=== PATIENT | female | born 1970 | race African-American/Black ===

== ENCOUNTER 2017-10-30 16:56 | Emergency (ER) | payer BC, MEDICAID ==
[~2017-10-30] VITALS: Ht 157.5 cm; Wt 65.8 kg
[~2017-10-30 16:56] MED LIST: ASPI-618 PO; ATOR10TA PO; HYDR-3326 PO; TOPI50TA PO
--- NOTE | 2017-10-30 17:10 | NUR ---
RECEIVED PT CO SUDDEN LOWER RT BACK PAIN SINCE YESTERDAY. PT POSITIONED ON BED COMFORTABLY, AWAITING
--- NOTE | 2017-10-30 17:20 | NUR ---
PATIENT FOR LUMBER XRAY, DENIES , SIGNED A WAIVER TO SCREEN AND AGREES TO PREFORM XRAY.
[2017-10-30 17:45] VITALS: BP 110/63
--- NOTE | 2017-10-30 17:45 | NUR ---
Patient discharged to home in stable conditon. Written and verbal after care instructions given. Patient verbalizes understanding of instructions.
== END 2017-10-30 17:47 | disposition home or self-care (01) ==
LOC: ER 16:58
DX: M54.5 Low back pain (principal); Z79.891 Long term (current) use of opiate analgesic; Z79.82 Long term (current) use of aspirin; Z79.899 Other long term (current) drug therapy
CPT/HCPCS: 72100; 99284; A4663

== ENCOUNTER 2018-04-07 01:13 | Emergency (ER) | payer SELFPAY ==
[~2018-04-07] VITALS: Ht 165.1 cm; Wt 68.9 kg
[2018-04-07] MEDS ORDERED: LIDOCAINE VISCUS 2% 15 ML UDC ONE ×2 (01:41)
[2018-04-07] MEDS ORDERED: PANTOPRAZOLE SODIUM 40 MG TABLET.DR PO ONE ×2 (01:42→01:45)
[2018-04-07] MEDS ORDERED: MAG HYDROX/AL HYDROX/SIMETH 30 ML LIQUID UDC ONE (01:42)
[2018-04-07] MEDS ORDERED: LIDOCAINE VISCUS 2% 15 ML UDC MM ONE (01:45)
[2018-04-07] MEDS ORDERED: MAG HYDROX/AL HYDROX/SIMETH 30 ML LIQUID UDC PO ONE (01:45)
--- NOTE | 2018-04-07 02:22 | NUR ---
Patient discharged to home in stable conditon. Written and verbal after care instructions given. Patient verbalizes understanding of instructions.
[2018-04-07 02:38] VITALS: BP 109/71
== END 2018-04-07 02:40 | disposition home or self-care (01) ==
LOC: ER 01:20
DX: K29.70 Gastritis, unspecified, without bleeding (principal); Z79.82 Long term (current) use of aspirin; Z79.891 Long term (current) use of opiate analgesic; Z79.899 Other long term (current) drug therapy
CPT/HCPCS: A4663

== ENCOUNTER 2021-06-30 17:55 | Emergency (ER) | payer SELFPAY ==
[~2021-06-30] VITALS: Ht 160 cm; Wt 70.3 kg
--- NOTE | 2021-06-30 18:51 | NUR ---
Dr [email or web address], medical screening exam in progress
--- NOTE | 2021-06-30 18:58 | NUR ---
pending MD orders, MD is [email or web address].
--- NOTE | 2021-06-30 19:01 | NUR ---
Jeanmarie razo in [facility] - 06/30/21 at 1918 by OBED SBAR to KANCHAN Pollack and KANCHAN Mark
--- NOTE | 2021-06-30 19:01 | NUR ---
SBAR to KANCHAN Pollack and orientee KANCHAN Sharpe.
[2021-06-30] MEDS: ASPIRIN 81 MG TAB.CHEW PO ONE (19:31)
--- NOTE | 2021-06-30 19:35 | NUR ---
Patient discharged to home in stable condition. Written and verbal after care instructions given. Patient verbalizes understanding of instructions. Stressed follow up or return to ER for worsening s/s.
[2021-06-30] MEDS ORDERED: ASPIRIN 81 MG TAB.CHEW ONE (19:38)
[2021-06-30 20:35] VITALS: BP 110/77
[2021-07-11] MEDS ORDERED: HYDR-4209 PO (16:18)
[2021-07-11] MEDS ORDERED: ATOR10TA PO (16:18)
== END 2021-06-30 19:40 | disposition home or self-care (01) ==
LOC: ER 17:58
DX: G43.109 Migraine with aura, not intractable, without status migrainosus (principal); R20.2 Paresthesia of skin; Z79.82 Long term (current) use of aspirin; Z79.899 Other long term (current) drug therapy
CPT/HCPCS: A4663

== ENCOUNTER 2021-07-10 13:30 | Inpatient (IN) | payer SELFPAY ==
[~2021-07-10] VITALS: Ht 160 cm; Wt 72.6 kg
--- NOTE | 2021-07-10 13:39 | NUR ---
Dr Hood at the bedside for MSE.
[2021-07-10] MEDS ORDERED: IV NORMAL SALINE 1000 ML BAG IV ONE (14:00)
--- NOTE | 2021-07-10 14:00 | NUR ---
Placed a call to [facility], hydrotechnical specialist notified, awaiting for call back.
--- NOTE | 2021-07-10 14:08 | NUR ---
TEXT DR. DR. WAN FOR MRI APPROVAL.
--- NOTE | 2021-07-10 14:09 | NUR ---
MRI ON HOLD PER DR. WAN. HE WILL LET US KNOW.
--- NOTE | 2021-07-10 14:23 | NUR ---
Pt back fro Ct.
[2021-07-10 14:24] LABS: HEMATOCRIT 43.3 % (31.2-41.9); MEAN CORPUSCULAR HEMOGLOBIN 30.9 uug (24.7-32.8); MEAN CORPUSCULAR VOLUME 90.6 fL (75.5-95.3); PLATELET COUNT (AUTO) 223 K/uL (179-408)
--- NOTE | 2021-07-10 14:25 | NUR ---
Received telephone call from Orville from [facility] who stated the MRI is pending approval and he will call back with further information.
[2021-07-10 14:43] LABS: BILIRUBIN,DIRECT 0.2 mg/dL (0.0-0.2); BILIRUBIN,TOTAL 0.7 mg/dL (0.2-1.0); CREATININE 0.8 mg/dL (0.6-1.3); POTASSIUM 4.1 mmol/L (3.5-5.1)
--- NOTE | 2021-07-10 16:15 | NUR ---
Patient admitted from ER patient is alert and oriented x4 and able to make needs known, no neuro deficit noted. patient able to ambulate without difficulty. skin is intact, on r/a with spo2 100%, rr even and non-labored, 0, son. NSR on monitor, no c/o chest pain. Continent no c/o constipation or diarrhea abd soft and non-tender. v/s wnl.
--- NOTE | 2021-07-10 18:05 | NUR ---
Report given to TELE floor room 318.
[2021-07-10 18:54] VITALS: BP 111/56
--- NOTE | 2021-07-10 19:30 | NUR ---
AAO x4, able to make needs know. Denies any dizziness or chest pain. C/O headache, 09/23. Pending MD orders. Low light and stimuli provided for pain relief with some help. On RA, no SOB. On Telemetry, controlled NSR at 71 bpm. Needs assessed and attended. Continent of bowel and bladder. Safety measures initiated, call light within reach.
[2021-07-10] MEDS ORDERED: ONDANSETRON 4 MG/2 ML VIAL IV PRN (21:00)
[2021-07-10] MEDS ORDERED: ATORVASTATIN 10 MG TABLET PO SCH (21:00)
[2021-07-10] MEDS ORDERED: TEMAZEPAM 15 MG CAPSULE PO PRN (21:00)
[2021-07-10] MEDS ORDERED: ACETAMINOPHEN 325 MG TABLET PO PRN (21:00)
[2021-07-10] MEDS ORDERED: MAGNESIUM HYDROXIDE 30 ML LIQUID UDC PO PRN (21:00)
[2021-07-10] MEDS: HYDROCODONE/APAP 5-325MG TABLET PO PRN (22:05)
--- NOTE | 2021-07-11 06:10 | NUR ---
HOLD OFF ON MRI BRAIN PER DR. WAN UNTIL FURTHER NOTICE.
--- NOTE | 2021-07-11 06:22 | NUR ---
Patient slept well this shift. No significant events. NSR on telemetry at 67 BPM. All needs attended, call light within reach.
[2021-07-11 06:56] LABS: HEMATOCRIT 42.3 % (31.2-41.9); MEAN CORPUSCULAR HEMOGLOBIN 30.6 uug (24.7-32.8); MEAN CORPUSCULAR VOLUME 90.9 fL (75.5-95.3); PLATELET COUNT (AUTO) 217 K/uL (179-408)
[2021-07-11 07:55] LABS: BILIRUBIN,TOTAL 0.7 mg/dL (0.2-1.0); CREATININE 0.6 mg/dL (0.6-1.3); PHOSPHOROUS 4.8 mg/dL (2.5-4.9); POTASSIUM 3.9 mmol/L (3.5-5.1); TOTAL PROTEIN, SERUM 7.1 g/dL (6.4-8.2)
[2021-07-11 08:22] LABS: THYROID STIMULATING HORMONE 2.946 mIU/mL (0.358-3.740)
[2021-07-11] MEDS ORDERED: ASPIRIN EC 81 MG TABLET.DR PO SCH (09:00)
--- NOTE | 2021-07-11 11:47 | NUR ---
Pt is a/o x 4. Presenting with normal sinus rhythm on telemetry. Pt does not complain of dizziness, light headedness this am. She stated she has a slight headache but did not want medication at this time. Pt has physical therapy eval pending per MD order. Plan is to discharge with prescriptions once cleared by PT. MRI held until further notice. Comfort measures provided, call light within reach. Will continue to monitor.
[2021-07-11 12:00] VITALS: BP 100/53
[2021-07-11] MEDS: HYDROCODONE/APAP 5-325MG TABLET PO PRN (13:02)
[2021-07-11 16:00] VITALS: BP 93/42
[2021-07-11] MEDS ORDERED: HYDR-4209 PO (16:18)
[2021-07-11] MEDS ORDERED: ATOR10TA PO (16:18)
--- NOTE | 2021-07-11 18:46 | NUR ---
Pt is being discharged home. Pt lives with daughter, car in parking structure. Pt stated she was stable to drive her own vehicle. Wheeled pt down to car. She is a/o x 4, no complaint of dizziness or pain at this time. All discharge education and materials given to pt. All personal belongings at hand and signed for. Prescriptions electronically sent to preferred pharmacy. IV/ID removed.
== END 2021-07-11 18:45 | disposition home or self-care (01) | DRG 103 ==
LOC: ER 13:30 → TELE3 18:00
PROVIDERS: ADMIT Internal Medicine; ATTEND Internal Medicine
DX: G43.909 Migraine, unspecified, not intractable, without status migrainosus (principal); Z86.73 Personal history of transient ischemic attack (TIA), and cerebral infarction without residual deficits; Z20.822 Contact with and (suspected) exposure to COVID-19; E66.9 Obesity, unspecified; Z79.82 Long term (current) use of aspirin; Z68.28 Body mass index [BMI] 28.0-28.9, adult; R20.2 Paresthesia of skin
CPT/HCPCS: 36415; 70030-TC; 70450; 83735; 84100; 84443; 85025; 85730; 93005; 93880; 97161; A4663; G0378; J7030